=== PATIENT | female | born 1975 | race Caucasian/White ===

== ENCOUNTER 2016-06-13 20:00 | Emergency (ER) | payer OTHER ==
[~2016-06-13] VITALS: Ht 165.1 cm; Wt 63.5 kg
[~2016-06-13 20:00] MED LIST: AMOXICILLIN500 M1 PO; AMOXICILLIN500 M3 PO; BACTRIM DS 8001 TAB PO; BACTRIM DS TAB1 EACH PO; DOXYCYCLINE HY100 M4 PO; HYDROCODON-ACE1 EAC2 PO; ICHTHAMMOL20% TOP; KEFLEX500 MG PO; MOTRIN 600 MG600 MG PO; NORCO 5-325 TA1 EACH PO; NOVOLOG FL100 UNIT/1; PERCOCET 325 MG1 TA2 PO; VIBRAMYCIN 100100 MG PO; VICODIN ES 3001 TAB PO
[2016-06-13] MEDS ORDERED: KEFLEX500 M1 PO (20:32)
[2016-06-13] MEDS ORDERED: BACTRIM DS TAB1 EACH PO (20:32)
[2016-06-13] MEDS ORDERED: NORCO 5-325 TA1 EACH PO (20:32)
--- NOTE | 2016-06-13 20:34 | ED SKIN/ALLERGY COMPLAINT ---
History of Present Illness General Chief Complaint: General Adult Stated Complaint: "I HAVE A PAIN CYST" Source: patient, old records Exam Limitations: no limitations Vital Signs & Intake/Output Vital Signs & Intake/Output Vital Signs Date Time Temp Pulse Resp B/P Pulse O2 O2 Flow FiO2 Ox Delivery Rate 06/13 2043 98.2 110 18 145/75 98 06/13 2011 98.5 112 16 156/94 97 Room Air Allergies Coded Allergies: NO KNOWN ALLERGIES (11/15/11) Reconcile Medications Amoxicillin 500 MG TABLET 1 TAB PO BID abscess Amoxicillin 500 MG TAB 1 TAB PO TID INFETION Cephalexin (Keflex) 500 MG CAPSULE 1 CAP PO TID ABSCESS Cephalexin (Keflex) 500 MG CAP 1 CAP PO TID cellulitis Doxycycline (Vibramycin 100 MG Cap) 100 MG CAP 1 CAP PO BID cellulitis Doxycycline Hyclate 100 MG TABLET 1 TAB PO BID cellulits/abscess Hydrocodone/Acetaminophen (Hydrocodon-Acetaminophen 5-325) 5 MG-325 MG TABLET 1-2 TAB PO Q4-6 PRN PRN pain Hydrocodone/Acetaminophen (Franklin 5-325 Tablet) 5 MG-325 MG TABLET 1-2 TAB PO Q4-6 PRN PRN pain Hydrocodone/Acetaminophen (Franklin 5-325 Tablet) 5 MG-325 MG TABLET 1 TAB PO Q4- 6 PRN PRN BREAKTHROUGH PAIN HYDROCODONE/ACETAMINOPHEN (Vicodin Es 7.5-300 MG Tablet) 1 TAB TAB 1 TAB PO Q6H PRN PAIN Hydrocodone/Acetaminophen (Franklin 5-325 Tablet) 5 MG-325 MG TABLET 1 TAB PO TIDPRN PRN PAIN Ibuprofen (Motrin 600 MG Tab) 600 MG TAB 1 TAB PO Q6P PRN PAIN Ichthammol 20% OIN 0 TOP SEE ADMIN CRITERIA abscess Apply to affected area daily then cover Insulin Aspart, Recombinant (Novolog Flexpen) (Unknown Strength) INSULN.PEN ( Unknown Dose) DIABETES (Reported) OXYCODONE HCL/ACETAMINOPHEN (Percocet 5-325 MG Tablet) 325 MG/5 MG TAB 1-2 TAB PO Q4-6 PRN PRN severe pain Sulfamethoxazole/Trimethopri (Bactrim Ds 800 MG-160 MG) 1 TAB TAB 1 TAB PO BID INFECTION Sulfamethoxazole/Trimethoprim (Bactrim Ds Tablet) 800 MG-160 MG TABLET 1 TAB PO BID abscess Sulfamethoxazole/Trimethoprim (Bactrim Ds Tablet) 800 MG-160 MG TABLET 1 TAB PO BID ABSCESS Triage Note: PT TO TRIAGE WITH C/O ABSCESS TO LOWER ADBOMEN x6DAYS. ABSCESS POPPED TWICE AND NOW PAINFUL 12/07. VSS. Triage Nurses Notes Reviewed? yes Onset: Abrupt Duration: week(s): (1), constant Timing: recent history Severity: moderate, severe Severity Numbers: 7 Location: torso Possible Factors: no cause identified Associated Symptoms: palpation : No Patient currently breastfeeds: No HPI: 41-year-old female presents to emergency room complaining of a painful cyst to her suprapubic region for the past 1 week. Patient has a history of abscesses in the past requiring incision and drainage. She states she first noticed this approximately a week ago started as a small pimple that popped on its own however is gotten progressively larger in size. She denies fevers chills, no nausea or vomiting. She denies any other rashes or abscesses to her skin pain is worse with palpation. She's been taking Advil without improvement. No chest pain nausea vomiting or diarrhea no urinary symptoms. Past History Travel History Traveled to [place] past 21 day No Medical History Any Pertinent Medical History? see below for history Neurological: NONE EENT: NONE Cardiovascular: hypertension Respiratory: NONE Gastrointestinal: NONE Hepatic: NONE Renal: NONE Musculoskeletal: NONE Psychiatric: NONE Endocrine: IDDM Blood Disorders: NONE Cancer(s): NONE Surgical History Surgical History: non-contributory Psychosocial History Who do you live with Mother Services at Home None What is your primary language Setswana Tobacco Use: Current Daily Use Daily Tobacco Use Amount/Type: => 5 Cigarettes daily Family History Hx Contributory? No Review of Systems Review of Systems Constitutional: Reports: see HPI. All Other Systems: Reviewed and Negative Comments Review of systems: See HPI, All other systems negative. Constitutional, no chills no fever, no malaise HEENT: No visual changes no sore throat no congestion Cardiovascular: No chest pain , no palpitation Skin, no jaundice no rashes, no change in skin Respiratory: No dyspnea no cough no sputum GI: No nausea no vomiting, no diarrhea, : No dysuria Muscle skeletal: No joint pain, no back pain, no neck pain, Neurologic: Nno headache Psych: No stress Heme/endocrine: No bruising no bleeding Immunology: No lymphadenopathy Physical Exam Physical Exam General Appearance: well developed/nourished, alert, awake Comments: Well-developed well-nourished patient in no apparent distress. HEENT: Atraumatic, extraocular motion intact Neck: Supple, FROM Back: FROM Cardiovascular: Regular rate and rhythms no murmurs rubs or gallops, Respiratory: No respiratory distress. Patient speaking in full complete sentences. Breath sounds clear to auscultation bilaterally: NO W/R/R Abdomen: Soft nontender no rebound or guarding Extremities: full range of motion Neuro: Alert and oriented x3 Skin: Warm & dry; there is a 2 x 1 cm area of induration and fluctuance noted to the right mid suprapubic region tender to palpation, no discharge elicited, positive over lying erythema Psych: Mood affect normal, normal memory normal judgment. Progress Differential Diagnosis: abscess/cellulitis, angioedema, contact dermatitis, drug reaction, erythema multiforme Plan of Care: Current Medications Sig/Madelyn Start time Last Medication Dose Stop Time Status Admin Acetaminophen/ 1 TAB ONCE ONE 06/13 2029 UNVr Hydrocodone Bitart 06/13 2030 (Vicodin) Cephalexin 500 MG ONCE ONE 06/13 2029 UNVr (Keflex 500MG Cap) 06/13 2030 Trimethoprim/ 1 TAB ONCE ONE 06/13 2029 UNVr Sulfamethoxazole 06/13 2030 (Bactrim DS) Old records reviewed it was recommended to the patient that she have an incision and drainage performed this evening. The patient has been seen in the past for abscesses and has initially refused I&D however is returned when the symptoms have not improved. She has required injections of IM fentanyl prior to the procedure which I offered her this evening however the patient is declining she states she will return in 48 hours for wound check advised return anytime sooner if she changes her mind or she has worsening pain fever chills antibiotic prescription and pain medications were sent to her pharmacy answered all of her questions they feel comfortable with this plan clear discharge (TYRELL ORN,LAKESHA) Departure Departure Time of Disposition: 2029 Disposition: HOME OR SELF CARE Condition: Stable Clinical Impression Primary Impression: Abscess Referrals: TAI FRANCE MD (PCP/Family) Additional Instructions: NORCO FOR BREAKTHROUGH PAIN, USE CAUTION THIS WILL MAKE YOU DROWSY. BACTRIM AND KEFLEX DIRECTED. RETURN IN 48 HOURS FOR WOUND CHECK, WARM COMPRESSES, EPSON SALT BATHS DISCUSSED. RETURN AT ANYTIME SOONER WITH ANY CONCERNS Departure Forms: Customer Survey General Discharge Information Prescriptions: Current Visit Scripts Sulfamethoxazole/Trimethoprim (Bactrim Ds Tablet) 1 TAB PO BID #14 TAB Cephalexin (Keflex) 1 CAP PO TID #21 CAP Hydrocodone/Acetaminophen (Franklin 5-325 Tablet) 1 TAB PO Q4-6 PRN PRN BREAKTHROUGH PAIN #12 TAB
[2016-06-13 20:44] VITALS: BP 145/75
== END 2016-06-13 20:45 ==
LOC: ERH 20:00
DX: L02.211 Cutaneous abscess of abdominal wall (principal)

== ENCOUNTER 2016-10-11 04:44 | Emergency (ER) | payer OTHER ==
[~2016-10-11] VITALS: Ht 165.1 cm; Wt 63.5 kg
[~2016-10-11 04:44] MED LIST changes: +KEFLEX500 M1 PO
[2016-10-11 04:54] VITALS: BP 171/81
--- NOTE | 2016-10-11 05:01 | ED SKIN/ALLERGY COMPLAINT ---
History of Present Illness General Chief Complaint: Skin Rash/ Abcess Stated Complaint: ABCESS UNDER LEFT ARMPIT Source: patient Exam Limitations: no limitations Vital Signs & Intake/Output Vital Signs & Intake/Output Vital Signs Date Time Temp Pulse Resp B/P B/P Pulse O2 O2 Flow FiO2 Mean Ox Delivery Rate 10/11 453 98.3 113 18 171/81 98 Room Air 10/11 0452 Room Air Allergies Coded Allergies: NO KNOWN ALLERGIES (11/15/11) Reconcile Medications Amoxicillin 250 MG CAPSULE 1 CAP PO TID ABSCESS Insulin Aspart, Recombinant (Novolog Flexpen) (Unknown Strength) INSULN.PEN ( Unknown Dose) DIABETES (Reported) Oxycodone HCl/Acetaminophen (Percocet 5-325 MG Tablet) 5 MG-325 MG TABLET 1-2 TAB PO Q6P PRN PAIN Triage Note: TRIAGE: PATIENT TO ER FROM HOME REPORTING ABCESS UNDER L ARMPIT ONSET FEW MONTHS AGO THOUGH REPORTS "GOT MUCH BIGGER SINCE SUNDAY." DENIES ANY DRAINAGE. HX DM. Triage Nurses Notes Reviewed? yes : No Patient currently breastfeeds: No HPI: Patient noticed an abscess in her left armpit 2 days ago. There is been increasing pain and swelling to the area. The pain is throbbing in nature. Pain increases when she lowers her arm. The pain is 10 out of 10. There is no pain outside of the swollen area. There are no fevers or chills. Similar symptoms in the past when she's had abscesses. Past History Travel History Traveled to [place] past 21 day No Medical History Any Pertinent Medical History? see below for history Neurological: NONE EENT: NONE Cardiovascular: hypertension Respiratory: NONE Gastrointestinal: NONE Hepatic: NONE Renal: NONE Musculoskeletal: NONE Psychiatric: NONE Endocrine: IDDM Blood Disorders: NONE Cancer(s): NONE HOSPITAL NURSING ASSISTANT/Reproductive: NONE Surgical History Surgical History: non-contributory Psychosocial History Who do you live with Mother Services at Home None What is your primary language Uzbek Tobacco Use: Quit >30 days ago ETOH Use: occasional use Illicit Drug Use: denies illicit drug use Family History Hx Contributory? No Review of Systems Review of Systems Constitutional: Reports: no symptoms. Respiratory: Reports: no symptoms. Cardiovascular: Reports: no symptoms. Musculoskeletal: Reports: no symptoms. Skin: Reports: see HPI. Neurological/Psychological: Reports: no symptoms. Immunologic/Allergic: Reports: no symptoms. Physical Exam Physical Exam General Appearance: well developed/nourished, alert, awake, mild distress Head: atraumatic Eyes: Bilateral: PERRL, EOMI. Neck: normal inspection, supple, full range of motion Respiratory: normal breath sounds, chest non-tender, no respiratory distress, lungs clear Cardiovascular: regular rate/rhythm, normal peripheral pulses Gastrointestinal: normal bowel sounds, soft, non-tender, no organomegaly Back: normal inspection, normal range of motion Extremities: normal inspection, normal capillary refill, normal range of motion, no edema, 2 cm x 1 cm fluctuant tender area in left axilla. No axillary adenopathy. Neurologic/Psych: no motor/sensory deficits, awake, alert, oriented x 3, normal gait, normal mood/affect Skin: intact, normal color Skin Problem Location: left axilla Skin Problem Character: abcess Lymphatic: no anterior cervical vasyl Progress Differential Diagnosis: abscess/cellulitis Plan of Care: Patient does not want to have it open at this point. Patient informed that an I &D is the proper treatment and that she would benefit from having it done. Patient states that she wants to try antibiotics and warm compresses. Departure Departure Disposition: HOME OR SELF CARE Condition: Stable Clinical Impression Primary Impression: Abscess Referrals: TAI FRANCE MD (PCP/Family) LORA AGARWAL,PAOLA Mohr Additional Instructions: TAKE ANTIBIOTICS PRESCRIBED USE WARM COMPRESSES RETURN IN 2 DAYS IF IT DOES NOT START TO DRAIN Departure Forms: Customer Survey General Discharge Information Prescriptions: Current Visit Scripts Amoxicillin 1 CAP PO TID #30 CAP Oxycodone HCl/Acetaminophen (Percocet 5-325 MG Tablet) 1-2 TAB PO Q6P PRN PAIN #20 TAB
[2016-10-11] MEDS ORDERED: PERCOCET 5-3251 EACH PO (05:04)
[2016-10-11] MEDS ORDERED: AMOXICILLIN250 M3 PO (05:04)
== END 2016-10-11 05:11 ==
LOC: ERH 04:44
DX: L02.412 Cutaneous abscess of left axilla (principal)

== ENCOUNTER 2017-10-30 07:30 | Emergency (ER) | payer OTHER ==
[~2017-10-30] VITALS: Ht 167.6 cm; Wt 67.1 kg
[~2017-10-30 07:30] MED LIST changes: +AMOXICILLIN250 M3 PO; +AUGMENTIN 875-1 EACH PO; +CARDIZEM CD240 M1 PO; +IBUPROFEN800 M1 PO; +LIDOCAINE HCL V15 ML PO; +NYSTATIN100000 UNI PO; +PERCOCET 5-3251 EACH PO; +PREDNISOLO15 MG/5 M4 PO; +PREDNISONE20 M1 PO; +PROVENTIL HFA6.7 GM INH; +SYMBICORT 16010.2 GM INH
[2017-10-30 07:32] VITALS: BP 162/89
--- NOTE | 2017-10-30 07:45 | ED SKIN/ALLERGY COMPLAINT ---
History of Present Illness General Chief Complaint: Skin Rash/ Abcess Stated Complaint: ABCESS Source: patient, old records Exam Limitations: no limitations Vital Signs & Intake/Output Vital Signs & Intake/Output Vital Signs Date Time Temp Pulse Resp B/P B/P Pulse O2 O2 Flow FiO2 Mean Ox Delivery Rate 10/30 0732 98.2 112 15 162/89 96 Room Air Room Air Allergies Coded Allergies: Sulfa (Sulfonamide Antibiotics) (Mild, ITCHY 10/30/17) Reconcile Medications Albuterol Sulfate (Proventil Hfa) 90 MCG HFA.AER.AD 2 PUF INH 4 TIMES/DAY PRN SHORTNESS OF BREATH (Reported) Budesonide/Formoterol Fumarate (Symbicort 160-4.5 Mcg Inhaler) 160 MCG-4.5 MCG/ ACTUATION HFA.AER.AD 2 PUF INH BID BREATHING PROBLEMS (Reported) Cephalexin (Keflex) 500 MG CAPSULE 1 CAP PO TID cellulitis Diltiazem HCl (Cardizem Cd) 240 MG CAP.ER.24H 1 CAP PO QPM HEART (Reported) Doxycycline Hyclate (Vibramycin) 100 MG CAPSULE 1 CAP PO BID cellulitis Ibuprofen 600 MG TABLET 1 TAB PO Q6P PRN pain with food Ibuprofen 800 MG TABLET 1 TAB PO TID PRN pain Insulin Aspart, Recombinant (Novolog Flexpen) (Unknown Strength) INSULN.PEN ( Unknown Dose) DIABETES (Reported) Tramadol HCl (Ultram) 50 MG TABLET 1-2 TAB PO Q6P PRN severe pain Triage Note: PT TO ED FOR C/C OF ?ABCESS TO R LOWER BUTT/THIGH AREA SINCE SUNDAY. PT REPORTS IT STARTED TO DRAIN YESTERDAY WITH FOUL SMELLING DRAINAGE. DENIES FEVERS OR CHILLS. IDDM. Triage Nurses Notes Reviewed? yes Onset: Last week Duration: day(s):, constant, continues in ED Timing: recent history Severity: moderate, severe Location: extremities Possible Factors: no cause identified Associated Symptoms: change in skin texture, rash, swelling/mass/lumps LMP (ages 10-50): unknown : No Patient currently breastfeeds: No HPI: 5 days prior to admission patient complains of painful lump on her right inner thigh. Last night it opened and drained foul-smelling material. She denies fever chills nausea vomiting diarrhea abdominal pain chest pain shortness breath headache dysuria bleeding. Past History Travel History Traveled to [place] past 21 day No Medical History Any Pertinent Medical History? see below for history Neurological: NONE EENT: NONE Cardiovascular: hypertension, hyperlipidemia Respiratory: asthma Gastrointestinal: NONE Hepatic: NONE Renal: NONE Musculoskeletal: NONE Psychiatric: anxiety Endocrine: IDDM Blood Disorders: NONE Cancer(s): NONE CREATIVE SERVICES COORDINATOR/Reproductive: NONE Surgical History Surgical History: non-contributory Psychosocial History Who do you live with Mother Services at Home None What is your primary language Haitian Tobacco Use: Current Daily Use Daily Tobacco Use Amount/Type: =< 4 Cigarettes daily ETOH Use: denies use Illicit Drug Use: denies illicit drug use Family History Hx Contributory? No Review of Systems Review of Systems Constitutional: Reports: no symptoms. EENTM: Reports: no symptoms. Respiratory: Reports: no symptoms. Cardiovascular: Reports: no symptoms. GI: Reports: no symptoms. Genitourinary: Reports: no symptoms. Musculoskeletal: Reports: no symptoms. Skin: Reports: see HPI, rash. Neurological/Psychological: Reports: no symptoms. Hematologic/Endocrine: Reports: no symptoms. Immunologic/Allergic: Reports: no symptoms. All Other Systems: Reviewed and Negative Physical Exam Physical Exam General Appearance: well developed/nourished, alert, awake, anxious, mild distress Head: atraumatic, normal appearance Eyes: Bilateral: normal appearance, PERRL, EOMI. Ears, Nose, Throat: normal pharynx, normal ENT inspection, hearing grossly normal Neck: normal inspection, supple, full range of motion, no midline tenderness Respiratory: normal breath sounds, chest non-tender, no respiratory distress, quiet respiration, lungs clear Cardiovascular: regular rate/rhythm, normal peripheral pulses, norml femoral pulses equa Peripheral Pulses: 4+ carotid (R), 4+ carotid (L) Gastrointestinal: normal bowel sounds, soft, non-tender, no organomegaly Back: normal inspection, normal range of motion, no vertebral tenderness Extremities: normal inspection, normal capillary refill, normal range of motion, no edema Neurologic/Psych: no motor/sensory deficits, awake, alert, oriented x 3, normal gait, normal mood/affect, umbrella cutter II-XII nml as tested Reflexes: 2+: bicep (R), bicep (L). Skin: intact, normal color, warm/dry Skin Problem Location: lower extremities (right inner thigh) Skin Problem Character: abcess (ruptured and open), rash, tenderness Lymphatic: no anterior cervical vasyl, inguinal node tender (R) Progress Differential Diagnosis: abscess/cellulitis, allergic reaction, contact dermatitis Plan of Care: Current Medications Sig/Madelyn Start time Last Medication Dose Stop Time Status Admin Cephalexin 500 MG ONCE ONE 10/31 799 AC (Keflex 500MG Cap) 10/30 800 Doxycycline Hyclate 100 MG ONCE ONE 10/31 799 AC (Vibramycin) 10/30 800 Ibuprofen 600 MG ONCE ONE 10/31 799 UNVr (Motrin) 10/30 800 Departure Departure Time of Disposition: 744 Disposition: HOME OR SELF CARE Condition: Stable Clinical Impression Primary Impression: Abscess Referrals: Mariusz Crisostomo MD (PCP/Family) Gilbert AGARWAL,Pedro Mohr Call for surgical follow up Additional Instructions: No shaving area for at least 2 weeks Departure Forms: Customer Survey General Discharge Information Prescriptions: Current Visit Scripts Ibuprofen 1 TAB PO Q6P PRN pain #50 TAB with food Tramadol HCl (Ultram) 1-2 TAB PO Q6P PRN severe pain #30 TAB Doxycycline Hyclate (Vibramycin) 1 CAP PO BID #20 CAP Cephalexin (Keflex) 1 CAP PO TID #30 CAP
[2017-10-30] MEDS ORDERED: ULTRAM50 M1 PO (07:48)
[2017-10-30] MEDS ORDERED: IBUPROFEN600 M1 PO (07:48)
[2017-10-30] MEDS ORDERED: VIBRAMYCIN100 MG PO (07:48)
[2017-10-30] MEDS ORDERED: KEFLEX500 M1 PO (07:48)
== END 2017-10-30 07:58 ==
LOC: ERH 07:30
DX: L02.415 Cutaneous abscess of right lower limb (principal)